=== PATIENT | male | born 1990 | race Caucasian/White ===

== ENCOUNTER 2018-02-13 15:10 | Emergency (ER) | payer MEDICARE ==
[~2018-02-13] VITALS: Ht 175.3 cm; Wt 70.3 kg
[~2018-02-13 15:10] MED LIST: ACETAMINOPHEN-1 EAC1 PO; AZITHROMYCIN 2250 MG PO; CARISOPRODOL 3350 MG PO; NOHOMEMEDICATIONS; NORFLEX100 MG PO; PERCOCET 5-3251 EACH PO; PREDNISONE 20 M20 MG PO; TRAMADOL 50 MG50 MG PO; ULTRAM 50MG TAB50 MG PO; ZOFRAN4 MG PO
[2018-02-13 15:40] LABS: ABSOLUTE EOSINOPHILS 0.2 thou/uL (0.0-0.7); ABSOLUTE LYMPHOCYTES 1.9 thou/uL (0.8-5.3); ABSOLUTE MONOCYTES 0.5 thou/uL (0.0-1.2); ABSOLUTE NEUTROPHILS 4.4 thou/uL (1.6-8.1); BASOPHILS 0.4 %; EOSINOPHILS 2.3 %; HEMOGLOBIN 13.9 gm/dL (14.0-18.0); LYMPHOCYTES 27.1 %; MCH 29.9 pg (26.0-34.0); MCHC 33.8 g/dL (28.0-37.0); MCV 88.4 fL (80.0-100.0); MONOCYTES 6.7 %; MPV 7.5 fl. (7.2-11.1); NUCLEATED RBCS 0 /100WBC; PLATELET COUNT* 221 thou/uL (150-400); POLYS 63.5 %; RBC 4.64 mil/uL (4.50-6.00); RDW-CV 12.9 % (10.5-14.5)
[2018-02-13 15:50] LABS: CALCIUM 8.3 mg/dL (8.5-10.1); CREATININE 0.9 mg/dL (0.6-1.3); POTASSIUM 3.6 mmol/L (3.5-5.1)
[2018-02-13 16:08] LABS: ALBUMIN 3.4 g/dL (3.4-5.0); TOTAL BILIRUBIN 0.4 mg/dL (<0.1-1.0); TOTAL PROTEIN 6.8 g/dL (6.4-8.2)
[2018-02-13 16:16] LABS: URINE BILIRUBIN NEGATIVE (Negative); URINE BLOOD NEGATIVE (Negative); URINE CLARITY CLEAR; URINE COLOR YELLOW; URINE GLUCOSE-RANDOM NEGATIVE (Negative); URINE KETONES NEGATIVE (Negative); URINE LEUKOCYTES-REFLEX NEGATIVE (Negative); URINE NITRITE-REFLEX NEGATIVE (Negative); URINE PROTEIN NEGATIVE (Negative); URINE UROBILINOGEN 0.2 E.U./dl (0.2-1.0)
[2018-02-13 16:31] LABS: AMP/METHAMP POSITIVE (Negative); BARBITURATES Negative (Negative); BENZODIAZEPINES Negative (Negative); COCAINE Negative (Negative); METHADONE Negative (Negative); OPIATES Negative (Negative); PCP Negative (Negative); THC POSITIVE (Negative)
[2018-02-13 16:40] VITALS: BP 116/68
--- NOTE | 2018-02-14 15:04 | EKG ---
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
== END 2018-02-13 16:41 | disposition home or self-care (01) ==
LOC: M.ERS 15:10
PROVIDERS: Family Medicine
DX: F19.10 Other psychoactive substance abuse, uncomplicated (principal); R04.2 Hemoptysis; F17.210 Nicotine dependence, cigarettes, uncomplicated; Z91.040 Latex allergy status; Z88.5 Allergy status to narcotic agent; Z88.6 Allergy status to analgesic agent; Z79.899 Other long term (current) drug therapy

== ENCOUNTER 2018-02-26 17:53 | Emergency (ER) | payer OTHER ==
[~2018-02-26] VITALS: Ht 167.6 cm; Wt 68.0 kg
[2018-02-26] MEDS ORDERED: KEFLEX500 M1 PO (18:35)
[2018-02-26 19:30] VITALS: BP 127/72
== END 2018-02-26 19:31 | disposition home or self-care (01) ==
LOC: M.ERS 17:53
DX: L02.31 Cutaneous abscess of buttock (principal); L02.511 Cutaneous abscess of right hand; F17.210 Nicotine dependence, cigarettes, uncomplicated; Z91.040 Latex allergy status; Z88.6 Allergy status to analgesic agent

== ENCOUNTER 2018-03-18 19:14 | Emergency (ER) | payer OTHER ==
[~2018-03-18] VITALS: Ht 152.4 cm; Wt 74.8 kg
[~2018-03-18 19:14] MED LIST changes: +KEFLEX500 M1 PO
[2018-03-18 20:21] LABS: ABSOLUTE BASOPHILS 0.1 thou/uL (0.0-0.2); ABSOLUTE EOSINOPHILS 0.1 thou/uL (0.0-0.7); ABSOLUTE LYMPHOCYTES 1.7 thou/uL (0.8-5.3); ABSOLUTE MONOCYTES 0.8 thou/uL (0.0-1.2); ABSOLUTE NEUTROPHILS 10.8 thou/uL (1.6-8.1); BASOPHILS 0.4 %; HEMATOCRIT 41.2 % (42.0-52.0); HEMOGLOBIN 13.9 gm/dL (14.0-18.0); LYMPHOCYTES 12.5 %; MCH 29.9 pg (26.0-34.0); MCHC 33.6 g/dL (28.0-37.0); MCV 88.8 fL (80.0-100.0); MONOCYTES 5.8 %; MPV 7.3 fl. (7.2-11.1); NUCLEATED RBCS 0 /100WBC; PLATELET COUNT* 278 thou/uL (150-400); POLYS 80.3 %; RBC 4.64 mil/uL (4.50-6.00); RDW-CV 13.1 % (10.5-14.5); WBC 13.5 thou/uL (4.0-11.0)
[2018-03-18 20:38] LABS: CALCIUM 8.1 mg/dL (8.5-10.1); CREATININE 0.8 mg/dL (0.6-1.3); POTASSIUM 3.5 mmol/L (3.5-5.1)
[2018-03-18 20:40] LABS: ALBUMIN 3.4 g/dL (3.4-5.0); TOTAL BILIRUBIN 0.7 mg/dL (<0.1-1.0); TOTAL PROTEIN 6.9 g/dL (6.4-8.2)
[2018-03-18] MEDS ORDERED: KEFLEX500 M1 PO (22:17)
[2018-03-18] MEDS ORDERED: BACTRIM DS TAB1 EACH PO (22:17)
[2018-03-18] MEDS ORDERED: NORCO 7.5-3251 EACH PO (22:17)
[2018-03-18] MEDS ORDERED: CLEOCIN HCL150 M1 PO (22:19)
[2018-03-19 00:23] VITALS: BP 109/53
== END 2018-03-19 00:25 | disposition home or self-care (01) ==
LOC: M.ERS 19:14
PROVIDERS: Emergency Medicine
DX: L02.414 Cutaneous abscess of left upper limb (principal); L02.31 Cutaneous abscess of buttock

== ENCOUNTER 2018-03-20 00:06 | Emergency (ER) | payer OTHER ==
[~2018-03-20] VITALS: Ht 175.3 cm; Wt 74.8 kg
[~2018-03-20 00:06] MED LIST changes: +BACTRIM DS TAB1 EACH PO; +CLEOCIN HCL150 M1 PO; +NORCO 7.5-3251 EACH PO
[2018-03-20 02:30] VITALS: BP 116/62
== END 2018-03-20 02:30 | disposition home or self-care (01) ==
LOC: M.ERS 00:06
DX: Z48.01 Encounter for change or removal of surgical wound dressing (principal); L02.31 Cutaneous abscess of buttock; F17.210 Nicotine dependence, cigarettes, uncomplicated; Z88.6 Allergy status to analgesic agent; Z91.040 Latex allergy status

== ENCOUNTER 2018-03-23 05:23 | Emergency (ER) | payer OTHER ==
[~2018-03-23] VITALS: Ht 175.3 cm; Wt 65.8 kg
[2018-03-23 07:52] VITALS: BP 109/77
== END 2018-03-23 07:52 | disposition home or self-care (01) ==
LOC: M.ERS 05:23
DX: Z48.01 Encounter for change or removal of surgical wound dressing (principal); R11.2 Nausea with vomiting, unspecified; F17.210 Nicotine dependence, cigarettes, uncomplicated; Z88.6 Allergy status to analgesic agent; Z91.040 Latex allergy status